=== PATIENT | female | born 1975 | race Caucasian/White ===

== ENCOUNTER 2023-12-05 10:25 | Outpatient (OUT) | payer BC, OTHER, SELFPAY ==
[2023-12-05 11:05] LABS: Estimated Average Glucose 105 mg/dL; Glycohemoglobin A1C 5.3 % (4.5-6.2)
[2023-12-05 11:09] LABS: Alanine Aminotransferase 29 U/L (14-59); Albumin Globulin Ratio 1.1; Albumin Level 3.8 g/dL (3.4-5.0); Alkaline Phosphatase 67 U/L (46-116); Anion Gap 14.9; Aspartate Amino Transferase 18 U/L (15-37); BUN Creatinine Ratio 18.2; Bilirubin Total 0.6 mg/dL (0.2-1.0); Calcium 9.1 mg/dL (8.5-10.1); Carbon Dioxide 25.1 mmol/L (21.0-32.0); Chloride 104 mmol/L (98-107); Chol HDL Ratio 3.6; Cholesterol 248 mg/dL (<=200); Estimated GFR (African America >60 (>=60); Estimated GFR (Non-African Ame >60 (>=60); Globulin 3.6 g/dL; Glucose 118 mg/dL (74-106); HDL Cholesterol 69 mg/dL (40-60); Sodium 140 mmol/L (136-145); TSH W/ REFLEX FT4 0.483 uIU/mL (0.358-3.740); Total Protein 7.4 g/dL (6.4-8.2); Triglycerides 53 mg/dL (<=150); VLDL CHOLESTEROL 10.6 mg/dL
== END 2023-12-05 10:26 | disposition home or self-care (01) ==
LOC: LAB 10:26
PROVIDERS: PCP Nurse Practitioner Family; Visit Provider Nurse Practitioner Family
DX: E78.5 Hyperlipidemia, unspecified (principal); Z13.228 Encounter for screening for other metabolic disorders; E04.1 Nontoxic single thyroid nodule; R73.01 Impaired fasting glucose
CPT/HCPCS: 36415; 80053; 80061; 83036; 84443

== ENCOUNTER 2024-12-06 09:29 | Outpatient (OUT) | payer BC, SELFPAY ==
[2024-12-06 10:28] LABS: Basophils Percent Auto 0.7 % (0.2-2.0); Eosinophils Absolute Auto 0.1 10^3/uL (0.0-0.7); Eosinophils Percent Auto 1.7 % (0.9-7.0); Hematocrit 44.6 % (36.0-48.0); Hemoglobin 14.4 g/dL (12.0-16.0); Immature Granulocytes Abs Auto 0.03 10^3/uL (0.00-0.03); Immature Granulocytes Pct Auto 0.5 % (0.0-0.5); Lymphocytes Absolute Auto 1.4 10^3/uL (1.2-3.8); Mean Corpuscular HGB Conc 32.3 g/dL (29.9-35.2); Mean Corpuscular Hemoglobin 29.1 pg (26.7-34.0); Mean Corpuscular Volume 90.3 fL (81.0-99.0); Mean Platelet Volume 9.6 fL (9.5-13.5); Monocytes Absolute Auto 0.4 10^3/uL (0.3-0.8); Monocytes Percent Auto 6.3 % (1.7-12.0); Neutrophils Absolute Auto 3.9 10^3/uL (1.4-6.5); Neutrophils Percent Auto 66.8 % (43.0-75.0); Platelet Count 181 10^3/uL (150-450); Red Blood Count 4.94 10^6/uL (4.20-5.40); Red Cell Distribution Width 13.2 % (11.0-15.0); White Blood Count 5.8 10^3/uL (4.0-11.0)
[2024-12-06 10:44] LABS: Erythrocyte Sedimentation Rate 9 mm/hr (<=30)
[2024-12-06 10:49] LABS: Percent Iron Saturation 22.7 %
[2024-12-06 10:55] LABS: Alanine Aminotransferase 27 U/L (14-59); Albumin Globulin Ratio 1.2; Albumin Level 3.8 g/dL (3.4-5.0); Alkaline Phosphatase 61 U/L (46-116); Aspartate Amino Transferase 16 U/L (15-37); BUN Creatinine Ratio 11.3; Bilirubin Total 0.6 mg/dL (0.2-1.0); C Reactive Protein <0.50 mg/dL (<=0.50); Calcium 8.8 mg/dL (8.5-10.1); Carbon Dioxide 25.9 mmol/L (21.0-32.0); Chloride 103 mmol/L (98-107); Chol HDL Ratio 2.7; Cholesterol 194 mg/dL (<=200); Estimated GFR (African America >60 (>=60 mL/min/1.73m^2); Estimated GFR (Non-African Ame >60 (>=60 mL/min/1.73m^2); Globulin 3.3 g/dL; Glucose 117 mg/dL (74-106); HDL Cholesterol 71 mg/dL (40-60); Potassium 3.9 mmol/L (3.5-5.1); Sodium 141 mmol/L (136-145); TSH W/ REFLEX FT4 0.744 uIU/mL (0.358-3.740); Total Protein 7.1 g/dL (6.4-8.2); Triglycerides 73 mg/dL (<=150); VLDL CHOLESTEROL 14.6 mg/dL
[2024-12-06 11:04] LABS: Estimated Average Glucose 120 mg/dL; Glycohemoglobin A1C 5.8 % (4.5-6.2)
[2024-12-07 04:07] LABS: Thyroid Peroxidase (TPO) Ab <9 IU/mL (0-34)
[2024-12-07 06:12] LABS: Rheumatoid Factor (RF) <10.0 IU/mL (<14.0)
[2024-12-07 12:08] LABS: ANA Direct Negative (Negative)
[2024-12-07 14:09] LABS: Thyroglobulin Antibody <1.0 IU/mL (0.0-0.9)
== END 2024-12-06 09:30 | disposition home or self-care (01) ==
LOC: LAB 09:32
PROVIDERS: PCP Nurse Practitioner Family; Visit Provider Nurse Practitioner Family
DX: R53.83 Other fatigue (principal); M25.50 Pain in unspecified joint; E78.5 Hyperlipidemia, unspecified; R73.01 Impaired fasting glucose; Z13.228 Encounter for screening for other metabolic disorders
CPT/HCPCS: 36415; 80053; 80061; 83036; 83540; 83550; 84443; 85025; 85652; 86038; 86140; 86376; 86431; 86800

== ENCOUNTER 2025-07-16 10:45 | Outpatient (OUT) | payer BC, SELFPAY ==
--- OUTSIDE RECORDS SUMMARY | 2024-04-12 03:00 | XMS_ITS ---
Author Organization [facility] Address [address] [facility] [place] [address] Care Team Providers Care Network Project Manager Name Role Phone Tere Perkins Primary Care Provider [phone] Dr. Dakota Bell Unavailable [phone] Kaley Rosenthal Unavailable [phone] REASON FOR VISIT PROPHY EXAM Encounters Encounter Location Date Provider Diagnosis [facility] [address] [facility] [place] [address] 04/12/2024 Kaley Rosenthal Plan Of Treatment No Information Progress Notes * SHAISTA RICHARDSDOB:1975 (50 yo F)Acc No.[id number]:04/12/2024 Patient:?SHAISTA RICHARDS :?Kaley HennessymelvinDOB:1975???Age:48 Y???Sex: FemaleDate:4Phone:[phone]:[address] [place], [place] [address]Pcp:Tere Perkins Subjective: * Chief Complaints: * P ROPHY EXAM * Electronic signature of Kaley Rosenthal on 07/16/2025 at 10:52 AM ESTSign off status: Pending * Provider: Francoise Rosenthal Date: 0 04/12/2024 Generated for Printing/Faxing/eTransmitting on:?07/16/2025 10:52 AM EST
--- OUTSIDE RECORDS SUMMARY | 2025-07-06 12:14 | XMS_ITS | Continuity of Care Document ---
Author Organization [facility] Address [address] [place] [address] Phone Care Team Providers Care Director Of Restaurants Name Role Phone Amy Sutton APRN Primary Care Provider Amy Sutton APRN Attending Provider [phone] Care Teams Patient Care Team Team Status: Active Member Role/Relationship Status Dates Amy Sutton APRN Primary Care Provider Active Visit Care Team Team Status: Inactive Member Role/Relationship Status Dates Amy Sutton APRN Primary Care Provider Active Start: April 27, 2025 End: April 27, 2025Harvey Mays ProviderActiveStart: April 27, 2025 End: April 27, 2025 Patient Care Team Team Status: Inactive Member Role/Relationship Status Dates Amy Sutton APRN Primary Care Provider Active Start: July 06, 2025 End: July 06, 2025Harvey Mays ProviderActiveStart: July 06, 2025 End: July 06, 2025 Chief Complaint and Reason for Visit Chief Complaint Admit Date Body aches, tired, rash, throwing up Sep tember 2024 1:48pm weight loss, chapped, sore lips July 06, 2025 4:29pm Reason for Visit Admit Date Viral illness April 27, 2025 1:48pm Allergies, Adverse Reactions, Alerts Allergen Type Severity Reaction Last Updated Verified Status No Known Allergies Allergy Unknown July 06, 2025 4:41pmYesActive Social History Smoking Status Status Start Date End Date Date of Observa tion Smokes tobacco daily (finding) July 06, 2025 4:42pm Observation Status Observation Response Date of Response Legal Sex Female (finding) Sex Assigned At BirthFemaleDecember 1974 Family History Relationship Condition Age at Onset Recorded Date/T charline aunt Unknown Malignant neoplasm of breastUnknownfatherChronic obstructive pulmonary disease UnknowngrandparentMyocardial infarctionUnknownDeceasedUnknownsisterDiabetes mellitusUnknownmotherFibromyalgiaUnknown Problems Active Problems Problem Diagnosis/Recorded Date Onset Date Stat Vaping nicotine dependence, tobacco product October 28, 2023 11:17am Unknown Active Fatigue November 23, 2024 3:29pm Unknown Acti ve Arthralgia November 23, 2024 3:30pm Unknown Acti ve Anxiety October 28, 2023 11:17am Unknown Act sunny Seasonal allergies October 28, 2023 11:17am Unknown Active HLD (hyperlipidemia) October 28, 2023 11:18am Unknown Active Impaired fasting blood sugar October 28, 2023 11:17am Unknown Active Obesity, Class II, BMI 35-39.9 December 11, 2023 3:49pm Un known Active Exercise-induced asthma October 28, 2023 11:17am Unkno wn Active Gastroesophageal reflux dise ase without esophagitis October 28, 2023 11:17am Unknown Active Prediabetes July 06, 2025 5:07pm Unknown Ac tive Thyroid nodule, hot October 28, 2023 11:17am Unknown Active Obesity, unspecified October 28, 2023 11:17am Unknown Active Inactive/Resolved Problems Problem Diagnosis/Recorded Date Onset Date Stat Obesity (BMI 30.0-34.9) May 25, 2024 4:04pm Unkn own Resolved Medications Medication Status Dose Units Route Directions Qty Days Refills S tart Date Stop Date End Date Reason(s) Instructions Adherence Buspirone 10 mg tablet Active 10 MG PO Twice daily as needed for anxiety 90 30 0 December 31 8:03am 1 tab am and 2 tabs hs Orally Twice a dayComplies with drug therapyPhentermine 37.5 mg lvxxzvZvlagtjrfysq50.0DPZPCbefw27923Wwqv 2023 4:01pmSeptember 2023 3:00pmClass 2 obesity Obesity, unspecifiedmust administer 30 minutes before or 1-2 hours after breakfastSemaglutide (Weight Loss) 0.25 mg/0.5 mL pen injectorDiscontinued0.25MG SUBCUTevery drfo44Yzoqct 2023 11:00pmAugust 2023 12:25pm0/6mg/0.25ml x 4 weeks *BUDERER*Fluticasone Propionate 50 mcg/actuation spray,suspension Discontinued0.ROUTE.SPCQYJJ454Majnvv 2023 9:20amSeptember 2023 2:58pmUSE 1 SPRAY IN EACH NOSTRIL ONCE DAILY NEEDED FOR 90 DAYSSemaglutide (Ozempic) 0.25 mg or 0.5 mg (2 mg/3 mL) pen injectorDiscontinued0.25MGSUBCUT every week1.72613Niewst 2023 11:00pmAugust 2023 12:25pmSemaglutide (Ozempic) 0.25 mg or 0.5 mg (2 mg/3 mL) pen injectorDiscontinued0.25MGSUBCUT every week1.95363Zzezoj 2023 12:24pmSeptember 2023 3:23pmx 4 weeks- [facility]- 04/01/24Budesonide-Formoterol 80-4.5 mcg/actuation HFA aerosol inhalerDiscontinued0.ROUTE.PHDWNZQ93.September 2023 7:32amOctober 2023 2:57pmINHALE 2 PUFFS INTO THE LUNGS TWICE A DAY FOR 90 DAYSOmeprazole 40 mg capsule,delayed release(DR/EC)Discontinued0.ROUTE.KROBJZR657Cwzjszi 2023 10:37amOctober 2023 2:57pmTAKE 1 CAPSULE BY MOUTH EVERY DAYAlbuterol Sulfate 90 mcg/actuation HFA aerosol inhalerDiscontinued0.ROUTE.XOCMYVG27 July 19, 2024 10:05amApril 2024 2:56pmINHALE 2 PUFFS NEEDED EVERY 4 HOURS FOR 90 DAYSOmeprazole 40 mg capsule,delayed release(DR/EC)Discontinued0 .ROUTE.OMEWSLU080Joqqemew 2024 8:21amApril 2024 2:56pmTAKE 1 CAPSULE BY MOUTH EVERY DAYBudesonide-Formoterol 80-4.5 mcg/actuation HFA aerosol inhaler Discontinued0.ROUTE.GDIWDCJ54.MyronMarch 2024 4:11pmApril 2024 2:56pm INHALE 2 PUFFS INTO THE LUNGS TWICE A DAY FOR 90 DAYSLoratadine 10 mg tablet Discontinued0.ROUTE.CXHWFFY494Hbvsb 2024 8:05amSeptember 2024 1:00pm TAKE 1 TABLET BY MOUTH DAILYFluticasone Propionate 50 mcg/actuation spray,suspensionDiscontinued0.ROUTE.HFBKJTX590Diuj 2024 7:06amSeptember 2024 1:00pmUSE 1 SPRAY IN EACH NOSTRIL ONCE DAILY NEEDED FOR 90 DAYS Omeprazole 40 mg capsule,delayed release(DR/EC)Discontinued0.ROUTE.OLEGBPY494 March 20, 2025 11:26amSeptember 2024 1:00pmTAKE 1 CAPSULE BY MOUTH EVERY DAYFluticasone Propionate 50 mcg/actuation spray,suspensionDiscontinued1 SPRAYINTRANASALDaily as neededMay 2023 11:00pmAugust 2023 9:20am Albuterol Sulfate 90 mcg/actuation HFA aerosol amqmctcAvjegbbsaeor2UALU INHALATIONEvery 4 hoursMa2023 11:00pmDecember 2023 10:05am Omeprazole 20 mg capsule,delayed release(DR/EC)Aszxvitjnkhj76PPGHQylrjDnc 2023 11:00pmSeptember 2023 3:19pmLoratadine 10 mg tiqiffEyfayuhubrbv96HDHG DailyMay 2023 11:00pmMay 2023 3:41pmBuspirone 10 mg tabletDiscontinued 10MGPOMay 2023 11:00pmMay 2023 8:03am1 tab am and 2 tabs hs Orally Twice a dayBudesonide-Formoterol (Symbicort) 80-4.5 mcg/actuation HFA aerosol hakbhseQnmmauugxklq3KMCAQOHMPMDQRBRqier dailyMay 2023 11:00pmSeptember 2023 7:32amLoratadine 10 mg vdpfayYkzqtprsoyey79ENTNGmmhe09885Bko 2023 3:40pmApril 2024 8:05amPhentermine 37.5 mg dolgkcQcqgkrrlldwm01.5MGPO Pktax10088Swu 2023 11:00pmJune 2023 3:27pmClass 2 obesity Obesity, unspecifiedmust administer 30 minutes before or 1-2 hours after breakfastPhentermine 37.5 mg timdicUmfjjralxsep59.6WWNOXpcya78246Uxzy 2023 3:26pmJuly 2023 3:19pmClass 2 obesity Obesity, unspecifiedmust administer 30 minutes before or 1-2 hours after breakfastOmeprazole 40 mg capsule,delayed release(DR/EC)Laxrxpgodpae22IEBXJlodz May 24, 2024 2:57pmFebruary 2024 8:21amBudesonide-Formoterol 80-4.5 mcg/actuation HFA aerosol mxpgdvsWsjsfgxkubym7WBOPNCDFGQLCIHRntmyGefaocq 2023 2:57pmMarch 2024 4:11pmSemaglutide 1 mg/dose (4 mg/3 mL) pen injector Xryozjcpurvx6KMPIQYONjxmjo week3.58803Yjooyxt 2023 3:25pmApril 2024 2:58pmx 12 weeks- [facility] 05/24/24Phentermine 37.5 mg tablet Pcvofyecoqdy82.6YJRTBsgjf44813Ehtm 2023 3:19pmJuly 2023 4:02pmClass 2 obesity Obesity, unspecifiedmust administer 30 minutes before or 1-2 hours after breakfastFluticasone Propionate 50 mcg/actuation spray,suspensionDiscontinued1 SPRAYINTRANASALDaily as neededSeptember 2023 2:58pmJune 2024 7:06am Omeprazole 40 mg capsule,delayed release(DR/EC)Skysasvwuisp17AIBDSskit51752 April 25, 2024 11:00pmOctober 2023 10:37amSemaglutide (Ozempic) 0.25 mg or 0.5 mg (2 mg/3 mL) pen injectorDiscontinued0.5MGSUBCUTevery week3.25521 April 26, 2024 3:22pmOctober 2023 3:26pmx 4 weeks- [facility] 04/26/24Omeprazole 40 mg capsule,delayed release(DR/EC)Retwrlounpra43OWAHVnhmg November 23, 2024 2:56pmAugust 2024 11:26amBudesonide-Formoterol 80-4.5 mcg/actuation HFA aerosol labxwtwNdnqlb3VBJEKAWUPXRVCHVnhnhQmstk 2024 2:56pmComplies with drug therapyAlbuterol Sulfate 90 mcg/actuation HFA aerosol cbxwoiaLtqxse3LGZCKZINTFYGJPKYOJE 4-6 HOURS as neededApril 2024 2:56pm Complies with drug therapyFluticasone Propionate 50 mcg/actuation spray,ealgfrumckZbfesv6TQMQKETEXRKGGQUBfnaoXkounmgfi 2024 1:00pmComplies with drug therapyLoratadine 10 mg rdtishWbibax98NINWNpqkqNakjohpmc 2024 1:00pmComplies with drug therapyOmeprazole 40 mg capsule,delayed release(DR/EC) Hszbad82QAZFZbxggSbomekrmc 2024 1:00pmComplies with drug therapy Immunizations Immunization Event Date Not Given Reason Dose Number Deputy Chief Magistrate Lot Number Reason(s) Given Vaccine Information Statement (VIS) Detail Administration Location COVID-19 mRNA-1273 (Moderna) December 04, 2020 COVID-19 mRNA-1273 (Moderna)January 02, 2021Hepatitis B Vaccine, adult dosage June 20, 2008Hepatitis B Vaccine, adult dosageDecember 2007Hepatitis B Vaccine, adult dosageMay 2008Influenza, injectable, MDCK, pfOctober [id number] InfluenzaOctober [id number] InfluenzaOctober [id number] Vital Signs Vital Reading Result Reference Range Collection Date/Time Height 65.5 [in_i] July 06, 2025 4:25pmYsfbxy669.58 kgDecemb2024 4:39pmBody Whkzratdhai29.8 [degF]97.6-99.0July 06, 2025 4:39pmHeart Rate88 /hjo66-273 July 06, 2025 4:39pmRespiratory rate20 /dpt54-21FixsfodzJuly 06, 2025 4:39pm Oxygen saturation by Pulse %95-100July 06, 2025 4:39pmBP Hgizenwc546 mm[Hg]100-140July 06, 2025 4:39pmBP Uspiuotbo76 mm[Hg]60-100 July 06, 2025 4:39pmBMI (Body Mass Index)40.3 kg/f3WcarjdzcJuly 06, 2025 4:39pm Advance Directives Advance Directive Response Recorded Date/ Time Advance Directives No October 11 10:17am Insurance Providers Guarantor Nisha Ricks Address [address] [place] [id number] Info.Home Phone: Coverage Status Update:2024 Payer Group Member ID Coverage Type Subscriber Relationship to Subscriber Effective Date Expiration Date Jeramy KONG Id: [id number] E Kerby Id: [id number] [address] [place] [phone] Home Phone: Encounters Encounter Location(s) Arrival/Admit Date Discharge/Departure Date Discharge/Departure Disposition Provider(s) Departed Physician/ Provider Office Visit -[facility] April 27, 2025 1:48pm April 27, 2025 2:04pm Discharged to home care or self care (routine discharge) Amy Sutton APRN Departed Physician/ Provider Office Visit -[facility] July 06, 2025 4:29pm July 06, 2025 5:13pm Discharged to home care or self care (routine discharge) Amy Sutton APRN Recent Diagnosis Onset Date Admit Date Viral illness Unknown April 27, 2025 1:48pm Assessments Diagnosis Onset Date Resolution Status Admit Date Viral illness noneactiveSeptember 2024 1:48pm Plan of Treatment Author Amy Sutton [facility] CenterAuthoredSeptember 2024 4:33pmDiscussed presentation consistent with viral illness. Will continue to monitor. Relatively benign and self-limiting. My only concern at this point would be that if she cannot push fluids, weakness will worsen. Significant dehydration would warrant IV rehydration. Patient states she is without concerns at this time. Will continue to monitor. Plans to rest, push fluids and get plenty of protein. Nioc-doe-coxpvbv medication and conservative measures recommended for symptom relief. Patient does request signal for work at this time. *Progress note was completed with the assistance of voice recognition software for dictation purposes. Please excuse any grammatical errors that were not corrected during review process. I have spent 13 minutes with and on this patient. This includes preparation, chart review, direct patient care, documentation. Over 50% of the visit was counseling done by myself, Amy BORJA. Future Tests Future scheduled test information is unavailable Pending Tests Pending diagnostic test information is unavailable Future Visits Future appointment information is unavailable Future Procedures Procedure Name Ordered Date Scheduled Date A1C with Estimated Average Glu July 06 5:05pm Thyroid Stim Hormone w/RflxDecember 2024 5:05pm Future Medications Future medication information is unavailable Patient Instructions Patient instructions are unavailable
--- OUTSIDE RECORDS SUMMARY | 2025-07-16 10:52 | XMS_ITS | Patient Health Record ---
Author Organization [facility] Address [address] [place] [address] Care Team Providers Care Nuclear Medicine Officer Name Role Phone Tere Perkins Primary Care Provider Dr. Dakota Bell Unavailable [phone] Rachele Manley Unavailable [phone] Allergies No Known Allergies Reason For Referral No Information Medications Medication SIG (Take, Route, Frequency, Duration) Notes Start Date End Date Status busPIRone HCl 15 MG Tablet 1 tablet in t he morning Orally once a day; Duration: 30 days ActivePen [place] 32G X 5 MM Miscellaneousas directed subcutaneously once a day; Duration: 30 days01/06/2023ctiveFluticasone Propionate 50 MCG/ACT Suspension1 spray in each nostril Nasally Once a day; Duration: 30 day(s)01/06/2023ctive busPIRone HCl 30 MG Tablet1 tablet at bedtime Orally once a day; Duration: 30 days01/31/2023ctiveFlonase 50 MCG/DOSE Inhaler1 spray in each nostril Nasally Once a dayActiveOmeprazole 20 MG Capsule Delayed Release1 capsule 30 minutes before morning meal Orally Once a dayActiveSymbicort 160-4.5 MCG/ACT Aerosol2 puffs Inhalation Once a dayActiveAlbuterol Sulfate HFA 108 (90 Base) MCG/ACT Aerosol Solution1 puff as needed Inhalation every 4 hrsActive Social History Tobacco Use: Social History Observation Description Date Details (start date - stop date) Unknown Social History GeneralSocial InfoQuestionAnswerNotesTransition of Care:ER/UC/hospital since last office visit?NoSpecialist seen since last office visit?NoSubstance abuse/mental health issues of patient/familyPatient -Caffeine UseAbility to understand healthcare/treatmentPatient:FairTobacco Screen:Are you a:Uses tobacco in other formsSocial/Support Concerns:Patient:NoAlcohol Screening:Did you have a drink containing alcohol in the past year?WrTfxhlk2NgqqozlfhuhfciYgtjipln Behaviors affecting healthPoor/Risky Behaviors:Second Hand Smoke-Communication Barrier:Language Barrier?:NoSection Notes: VAPES VAPES VAPES Problems Problem Type SNOMED Code ICD Code Onset Dates Problem Status W/U Status Risk Notes Problem Obesity due to exces s calories (971814775) Other obesity due to excess calories (E66.09) ActiveconfirmedProblemHypoglycemia (553397155)Hypoglycemia (E16.2)Active confirmedProblemObesity (452700947)Obesity, unspecified (E66.9)Activeconfirmed ProblemGeneralized anxiety disorder (10340678)ISHAN (generalized anxiety disorder) (F41.1)ActiveconfirmedProblemBody mass index 30.00 to 34.99 (237462042264717) Body mass index [BMI] 33.0-33.9, adult (Z68.33)Activeconfirmed Encounters Encounter Location Date Provider Diagnosis [facility] [address] [place] [address] 12/09/2024 [facility] [place] [address]/15/2025 [facility] [place] [address]/[facility] [place] [address] [place] [address]/Rachele Rogers for dental examination and cleaning with abnormal findings Z01.21 ; Other dental procedure status Z98.818 ; Disturbances in tooth eruption K00.6 ; Acute gingivitis, plaque induced K05.00 and Dental caries on pit and fissure surface penetrating into dentin K02.52 Assessments Encounter Date Diagnosis (ICD Code) Assessment Notes Treatment Notes Treatment Clinical Notes Section Notes 11/17/2024 Encounter for dental examination and cleaning with abnormal findings (ICD-10 - Z01.21) 11/17/2024Other dental procedure status (ICD-10 - Z98.818)11/17/2024Disturbances in tooth eruption (ICD-10 - K00.6)11/17/2024ute gingivitis, plaque induced (ICD-10 - K05.00)11/17/2024Dental caries on pit and fissure surface penetrating into dentin (ICD-10 - K02.52) Plan Of Treatment No Information Insurance Providers Payer Name Payer Address Payer Phone Subscriber Number Group Number Insured Name Patient Relationship to Insured Coverage Start Date Coverage End Date ANTHEM Primary [address] [place] [address] [id number] SHAISTA RICHARDSSelf - patient is the [id number] [facility] [place] MedicaidPO [address] [place] [id number], TRACISelf - patient is the [id number] [facility] CareSourcePO [address] [place] [id number], TRACISelf - patient is the gkomamz20ental CareSource [place]PO [address] [place] [id number], TRACISelf - patient is the insured ental Wrap [facility] CareSourcePO [address] [place] [address] [id number], TRACISelf - patient is the insured E[employer] GUARDIANPO [address] [place] [phone] [id number], TRACISelf - patient is the [id number] 2024 Medical (General) History Medical History History ICD Code ANXIETY SEASONAL ALLERGIESSurgical History Surgery Date(Month/Year) TUBAL LIGATION 1995
--- OUTSIDE RECORDS SUMMARY | 2025-07-16 10:52 | XMS_ITS | Clinical Summary ---
Author Organization [facility] Address [address] [place] [address] Care Team Providers Care Consumer Electronics Merchandiser Name Role Phone Unallocated, [facility] Provider Primary Care Provi apurva Amy Sutton MACHINERY MECHANIC Unavailable [phone] Allergies No known active allergies Medications MedicationSigDispense QuantityRefillsLast FilledStart DateEnd DateStatus busPIRone (Buspar) 10 MG tablet TAKE 1 TABLET BY MOUTH IN THE MORNING AND 2 TABLETS AT BEDTIME FOR 90 DAYS 07/01/2023ctive budesonide-formoterol (Symbicort) 80-4.5 MCG/ACT inhaler INHALE 2 PUFFS INTO THE LUNGS TWICE A DAY FOR 90 DAYS06/30/2023ctive fluticasone (Flonase) 50 MCG/ACT nasal spray USE 1 SPRAY IN EACH NOSTRIL ONCE DAILY NEEDED FOR 90 DAYS06/30/2023ctive loratadine (Claritin) 10 MG tablet TAKE 1 TABLET BY MOUTH EVERY DAY FOR 90 DAYS06/10/2023ctive omeprazole (PriLOSEC) [address] capsule TAKE 1 CAPSULE BY MOUTH EVERY DAY 30 MINUTES BEFORE MORNING MEAL FOR 90 DAYS 07/06/2023ctive Multiple Vitamins-Minerals (Multi Adult Gummies) chewable tablet as directed OrallyActive azithromycin (Zithromax) 250 MG tablet Indications:Acute upper respiratory infectionTake 2 tabs (500 mg) by mouth today, than 1 tab (250 mg) daily for 4 days. 6 tablet 5Active Encounters DateTypeDepartmentCare JqtwTrhejverowf14/25/2025 12:25 PM EDTOffice Visit [facility] [address] [place] [address] Jazmin Radford, NANETTE Acute upper respiratory infection (Primary Dx); Pharyngitis, unspecified /25/2025Travelfrom Last 3 Months Social History Tobacco UseTypesPacks/DayYears UsedDateSmoking Tobacco: NeverSmokeless Tobacco: Never Tobacco Cessation:Counseling Given: Not Answered AUDIT-CAnswerDate RecordedQ1: How often do you have a drink containing alcohol? Never07/10/2023Q2: How many drinks containing alcohol do you have on a typical day when you are drinking?Patient does not drink07/10/2023Q3: How often do you have six or more drinks on one occasion?Never07/10/2023HQ-2AnswerDate Recorded Patient Health Questionnaire-2 Ocomk15009/10/2022CommentsNoSex and Gender InformationValueDate RecordedSex Assigned at BirthNot on fileLegal SexFemale 10/16/2022 7:20 PM EDTGender IdentityNot on fileSexual OrientationNot on file Last Filed Vital Signs Vital SignReadingTime TakenCommentsBlood Fpmwthlo794/7809 12:39 PM EDT Jdtjz76424/25/2025 12:39 PM MIUNfmgadrgjvp64.3 ??C (97.4 ??F)04/28/2025 12:39 PM EDTRespiratory Rate--Oxygen Ujbyddtpvc92%04/28/2025 12:39 PM EDTInhaled Oxygen Concentration--Desfhl243 kg (233 lb 11 oz)12/22/2024 4:08 PM YNOJapzmm825.6 cm (5' 6 )07/10/2023 8:02 AM ESTBody Mass Index37.7207/10/2023 8:02 AM EST Plan of Treatment Health MaintenanceDue DateLast DoneCommentsCT Btoausbwjrqe1973Colonoscopy 1973FIT1973FOBT07/04/19739994Mfgwxtecifqei1973Pap Smear1994 Ehjyruhby57/06/2023, 2COVID-19 Vaccine ( season) /08/2020, 12/04/2020Influenza Vaccine (#1)/, 05/06/2016Colorectal Cancer Rcbvcnkme86/18/2026FIT-DNA Cervical Cancer Znnjshgmj36/06/2027HPV/Bybouq74neumococcal Vaccine: Pediatrics (0 to 5 Years) and At-Risk Patients (6 to 64 Years)Aged Out No longer eligible based on patient's age to complete this topic Procedures Procedure NamePriorityDate/TimeAssociated DiagnosisCommentsINFLUENZA DNA PROBE Mzljpmk8604/28/2025 1:06 PM EDT Pharyngitis, unspecified etiology RAPID DNA OPPOPCmyhnki75/25/2025 1:06 PM EDT Pharyngitis, unspecified etiology STREP DNA MDARLYyzczwb75/25/2025 1:06 PM EDT Pharyngitis, unspecified etiology MAMMO 3D,BILATERAL SCREENING MAMMOGRAM WITH WFEXUGPstmwpl58/11/2023 1:40 PM EDT LAB COLOGUARD?? COLON CANCER QVABYEWbvlpfa16/18/2023 THINPREP PAP AND HPV MRNA E6/E7 REFLEX HPV 16,18/83Wlhqpwy71/06/2022 from Last 3 Months or Most Recently Relevant to Health Maintenance Results * STREP DNA PROBE (04/28/2025 1:06 PM EDT)ComponentValueRef RangeTest Method Analysis TimePerformed AtPathologist SignatureRESULTnegativeNegativeSpecimen (Source)Anatomical Location / LateralityCollection Method / VolumeCollection TimeReceived SjmdLwuynz42/25/2025 1:06 PM EDT Narrative Authorizing ProviderResult TypeResult StatusJesse Winslow DOPOINT OF CARE TEST ENTER/EDIT ORDERABLESFinal Result * RAPID DNA COVID (04/28/2025 1:06 PM EDT)ComponentValueRef RangeTest Method Analysis TimePerformed AtPathologist SignatureCOVID-19 NAATnegativeNegative Specimen (Source)Anatomical Location / LateralityCollection Method / Volume Collection TimeReceived OruqNvjac38/25/2025 1:06 PM EDT Narrative Authorizing ProviderResult TypeResult StatusJesse Winslow DOPOINT OF CARE TEST ENTER/EDIT ORDERABLESFinal Result * INFLUENZA DNA PROBE (04/28/2025 1:06 PM EDT)ComponentValueRef RangeTest Method Analysis TimePerformed AtPathologist SignatureINFLUENZA AnegativeNegative INFLUENZA BnegativeNegativeSpecimen (Source)Anatomical Location / Laterality Collection Method / VolumeCollection TimeReceived KyflPrijx38/25/2025 1:06 PM EDT Narrative Authorizing ProviderResult TypeResult StatusBenylisseth Winslow DOPOINT OF CARE TEST ENTER/EDIT ORDERABLESFinal Result * MAMMO 3D,BILATERAL SCREENING MAMMOGRAM WITH TOMOSY (04/14/2023 1:40 PM EDT) Anatomical RegionLateralityModalityRadiographic Imaging Narrative Authorizing ProviderResult TypeResult StatusTere George NPIMG XR PROCEDURESFinal Result * Cologuard?? colon cancer screening (08/21/2022)ComponentValueRef RangeTest MethodAnalysis TimePerformed AtPathologist SignatureCOLOGUARD RESULT REPORTABLECancelled - Provider RequestNot ApplicableNOMS LEGACY [facility]TER[facility] Specimen (Source)Anatomical Location / LateralityCollection Method / Volume Collection TimeReceived Time08/21/2022 Narrative Authorizing ProviderResult TypeResult StatusStjodi George NPLAB MOLECULAR DIAGNOSTICS ORDERABLESFinal ResultPerforming OrganizationAddressCity/State/ZIP CodePhone Number [facility] * THINPREP PAP AND HPV MRNA E6/E7 REFLEX HPV 16,18/45 (07/09/2022)ComponentValue Ref RangeTest MethodAnalysis TimePerformed AtPathologist SignatureCLINICAL INFORMATION:SEE COMMENTNOMS LEGACY EXTERNAL LABComment:None givenLMP:SEE COMMENTNOMS LEGACY EXTERNAL LABComment:None givenPREV. PAP:SEE COMMENTNOMS LEGACY EXTERNAL LABComment:None givenPREV. BX:SEE COMMENTNOMS LEGACY EXTERNAL LABComment:None givenSOURCE:SEE COMMENTNOME LEGACY EXTERNAL LABComment:None givenSTATEMENT OF ADEQUACY:SEE COMMENTNOMS LEGACY EXTERNAL LABComment: Satisfactory for evaluation. Endocervical/transformation zone component present. INTERPRETATION/RESULT:SEE COMMENTNOMS LEGACY EXTERNAL LABComment:Negative for intraepithelial lesion or malignancy.LUMBER TALLIER:SEE COMMENTNOMS LEGACY EXTERNAL LABComment: EMP, CT(ASCP) CT screening location: [facility], [address] [place] [address]. COMMENTSEE COMMENTNOME LEGACY EXTERNAL LABComment: EXPLANATORY NOTE: The Pap is a screening test for cervical cancer. It is not a diagnostic test and is subject to false negative and false positive results. It is most reliable when a satisfactory sample, regularly obtained, is submitted with relevant clinical findings and history, and when the Pap result is evaluated along with historic and current clinical information. HPV MRNA E6/E7Not DetectedNot DetectedNOME LEGACY EXTERNAL LABComment: Methodology: Ventilator Specialist-Mediated Amplification This assay detects E6/E7 viral messenger RNA (mRNA) from 14 high-risk HPV types (16,18,31,33,35,39,45,51,52,56,58,59,66,68). Cervical sources are required for HPV testing. If a vaginal source from a patient who has had a total hysterectomy with removal of cervix was submitted, please contact the testing laboratory for alternative testing options. For additional information, please refer to http://education.StepUp/faq/AVW181h4 (This link if provided for information/ educational purposes only.) Specimen (Source)Anatomical Location / LateralityCollection Method / Volume Collection TimeReceived Time07/09/2022 Narrative Authorizing ProviderResult TypeResult StatusStepmarli George NPECW LABSFinal ResultPerforming OrganizationAddressCity/State/ZIP CodePhone Number [facility] from Last 3 Months or Most Recently Relevant to Health Maintenance Insurance Care Teams Team MemberRelationshipSpecialtyStart DateEnd Date Unallocated, [facility] MD Radha [address] [place] [address] PCP - Bgucakn34/7/23 Amy Sutton NP [address] [facility] [address] [place] [address] Nurse PractitionerFamily Medicine10/30/24
[2025-07-16 11:41] LABS: TSH W/ REFLEX FT4 1.357 uIU/mL (0.358-3.740)
== END 2025-07-16 10:46 | disposition home or self-care (01) ==
PROVIDERS: PCP Nurse Practitioner Family; Visit Provider Nurse Practitioner Family
DX: E04.1 Nontoxic single thyroid nodule (principal); E66.9 Obesity, unspecified; R73.03 Prediabetes
CPT/HCPCS: 36415; 83036; 84443